=== PATIENT | male | born 1960 | race Caucasian/White ===

== ENCOUNTER → 2017-10-18 | Emergency (ER) | payer OTHER ==
[~2017-10-18] VITALS: Ht 170.2 cm; Wt 83.9 kg
[~2017-10-18] MED LIST: GLIPIZIDE5 MG; LOSARTAN POTASS50 MG; METFORMIN HCL1000 MG; METOPROLOL SUCC50 MG
== END | disposition home or self-care (01) ==
LOC: ER 16:17
DX: R42 Dizziness and giddiness (principal)

== ENCOUNTER 2017-12-10 22:13 | Inpatient (IN) | payer OTHER ==
[~2017-12-10] VITALS: Ht 170.2 cm; Wt 83.9 kg
[2017-12-16] MEDS ORDERED: METRONIDAZOLE500 MG PO (14:36)
[2017-12-16] MEDS ORDERED: CIPRO500 MG PO (14:36)
[2017-12-16] MEDS ORDERED: PANTOPRAZOLE SO40 MG PO (14:37)
[2017-12-19] MEDS ORDERED: UROXATRAL10 MG PO (09:57)
[2017-12-19] MEDS ORDERED: NEFAZODONE HCL150 MG PO (09:58)
== END 2017-12-16 16:35 | disposition home or self-care (01) | DRG 444 ==
LOC: ER 22:13 → MEDI 12-11 10:20 → MEDJ 12-15 13:44
PROC: BF37ZZZ Magnetic Resonance Imaging (MRI) of Pancreas (ICD-10-PCS; principal; 2017-12-11)
PROC: BW40ZZZ Ultrasonography of Abdomen (ICD-10-PCS; 2017-12-11)
PROC: BW21Y0Z Computerized Tomography (CT Scan) of Abdomen and Pelvis using Other Contrast, Unenhanced and Enhanced (ICD-10-PCS; 2017-12-12)
PROC: CF1C1ZZ Planar Nuclear Medicine Imaging of Hepatobiliary System, All using Technetium 99m (Tc-99m) (ICD-10-PCS; 2017-12-12)
DX: K80.80 Other cholelithiasis without obstruction (principal); K85.10 Biliary acute pancreatitis without necrosis or infection; R65.10 Systemic inflammatory response syndrome (SIRS) of non-infectious origin without acute organ dysfunction; I10 Essential (primary) hypertension; E11.9 Type 2 diabetes mellitus without complications

== ENCOUNTER 2017-12-20 06:00 | Day surgery (SDC) | payer OTHER ==
[~2017-12-20 06:00] MED LIST changes: +CIPRO500 MG PO; +METRONIDAZOLE500 MG PO; +NEFAZODONE HCL150 MG PO; +PANTOPRAZOLE SO40 MG PO; +UROXATRAL10 MG PO
== END 2017-12-20 12:00 | disposition home or self-care (01) ==
LOC: CIR.AMB 06:00
DX: K80.10 Calculus of gallbladder with chronic cholecystitis without obstruction (principal)

== ENCOUNTER 2021-11-16 06:00 | Day surgery (SDC) | payer OTHER ==
[~2021-11-16 06:00] MED LIST changes: +CARVEDILOL6.25 M1 PO; +COZAAR25 MG PO; +LOVAZA PO; +PRAVASTATIN SOD10 MG PO; +SERTRALINE PO; +TRIJAR PO
[2021-11-16] MEDS ORDERED: CIPRO500 MG PO (08:41)
[2021-11-16] MEDS ORDERED: PROTONIX40 MG PO (08:41)
[2021-11-16] MEDS ORDERED: ULTRAM50 MG PO (08:41)
== END 2021-11-16 13:00 | disposition home or self-care (01) ==
LOC: CIR.AMB 06:00 → U 06:00 → CIR.AMB 07:00
PROVIDERS: ATTEND Surgery
DX: K42.9 Umbilical hernia without obstruction or gangrene (principal); E11.9 Type 2 diabetes mellitus without complications; I10 Essential (primary) hypertension; Z88.8 Allergy status to other drugs, medicaments and biological substances; Z88.0 Allergy status to penicillin; N40.0 Benign prostatic hyperplasia without lower urinary tract symptoms; E78.5 Hyperlipidemia, unspecified; E78.00 Pure hypercholesterolemia, unspecified